=== PATIENT | female | born 1965 | race Caucasian/White ===

== ENCOUNTER 2017-05-25 19:50 | Inpatient (IN) | payer BC ==
[~2017-05-25] VITALS: Ht 170.2 cm; Wt 80.0 kg
[2017-05-25 21:33] LABS: ADD MIUA? YES; BILIRUBIN SMALL; BLOOD NEGATIVE; GLUCOSE (STRIP) NEGATIVE; KETONES 5; LEUKOCYTES NEGATIVE; NITRITE NEGATIVE; PROTEIN (STRIP) 100; SPECIFIC GRAVITY 1.029 (1.000-1.030)
[2017-05-25 21:37] LABS: COLOR AMBER ((YELLOW))
[2017-05-25 21:51] LABS: BACTERIA RARE /HPF; EPITHELIAL CELLS 3+ /HPF; HYALINE CASTS 0-5 /LPF; MUCUS 1+ /LPF; UCUL ADDED? NO; WHITE BLOOD CELLS 0-5 /HPF (0-5)
[2017-05-25 22:27] LABS: HEMATOCRIT 47.8 % (36.0-46.0); MCH 32.1 PG (29.0-34.0); MCHC 33.9 G/DL (30.0-36.0); MCV 94.7 FL (83-99); MEAN PLAT.VOLUME 9.2 uM^3 (9.5-12.4); PLATELET COUNT 251 K/uL (156-360); RBC DIS.WIDTH-CV 11.9 % (11.8-14.6); RBC DIS.WIDTH-SD 41.5 % (39-53); RED BLOOD COUNT 5.05 M/uL (3.80-5.20); WHITE BLOOD COUNT 9.6 K/uL (4.1-10.2)
[2017-05-25 22:39] LABS: CHLORIDE 106 mEq/L (99-109); POTASSIUM 4.5 mEq/L (3.7-5.4); SODIUM 138 mEq/L (136-147)
[2017-05-25 22:41] LABS: GLUCOSE 92 mg/dL (70-99)
[2017-05-25 22:43] LABS: ANION GAP 9 MEQ/L (2-14); TOTAL BILIRUBIN 0.4 mg/dL (0.0-1.0)
[2017-05-25 22:45] LABS: ALKALINE PHOSPHATASE 68 IU/L (3-129); GFR ESTIMATE (CALCULATED) > 59 mL/min/
[2017-05-25 22:46] LABS: UREA NITROGEN (BUN) 14 mg/dL (9-23)
[2017-05-26] VITALS (7 sets, daily range): BP systolic 129–163; BP diastolic 59–96
[2017-05-26] MEDS ORDERED: EFFEXOR XR75 MG PO (00:13)
[2017-05-26] MEDS ORDERED: LAMICTAL200 MG PO (00:13)
[2017-05-26] MEDS ORDERED: ADVIL200 MG PO (00:14)
[2017-05-27 03:54] VITALS: BP 117/76
[2017-05-27 07:04] LABS: HEMATOCRIT 44.8 % (36.0-46.0); MCH 31.5 PG (29.0-34.0); MCHC 32.8 G/DL (30.0-36.0); MCV 95.9 FL (83-99); MEAN PLAT.VOLUME 9.4 uM^3 (9.5-12.4); PLATELET COUNT 246 K/uL (156-360); RBC DIS.WIDTH-SD 42.4 % (39-53); RED BLOOD COUNT 4.67 M/uL (3.80-5.20); WHITE BLOOD COUNT 6.8 K/uL (4.1-10.2)
[2017-05-27 07:24] LABS: ANION GAP 5 MEQ/L (2-14); CHLORIDE 101 MEQ/L (99-109); GFR ESTIMATE (CALCULATED) > 59 mL/min/; GLUCOSE 70 mg/dL (70-99); POTASSIUM 4.8 MEQ/L (3.7-5.4); SAMPLE HEMOLYSIS CHECK 0; SAMPLE ICTERIC CHECK 0; SAMPLE LIPEMIA CHECK 0; SODIUM 139 MEQ/L (136-147)
[2017-05-27 07:36] LABS: UREA NITROGEN (BUN) 25 mg/dL (9-23)
[2017-05-27 08:30] VITALS: BP 154/86
[2017-05-27] MEDS ORDERED: ENDOCET 5-3251 EACH PO (12:01)
[2017-05-27] MEDS ORDERED: ONDANSETRON4 MG/2 ML IV (12:01)
== END 2017-05-27 12:35 | disposition home or self-care (01) | DRG 200 ==
LOC: EME 19:50 → 3EAST 23:52 → EDOF 23:52 → 3EAST 23:52 → ENRESERV 05-26 00:01 → 3EAST 05-26 00:46
PROVIDERS: Emergency Medicine; Surgery
DX: S27.0XXA Traumatic pneumothorax, initial encounter (principal); S22.41XA Multiple fractures of ribs, right side, initial encounter for closed fracture; J98.11 Atelectasis; I10 Essential (primary) hypertension; F32.9 Major depressive disorder, single episode, unspecified; W10.9XXA Fall (on) (from) unspecified stairs and steps, initial encounter
CPT/HCPCS: 71010; 71020; 71101; 71260; 74177; 80048; 80053; 81003; 85027; 99281; 99285; J1170; J1650; J1885; J2270; J2405; J3010